=== PATIENT | male | born 2000 | race African-American/Black ===

== ENCOUNTER 2020-04-13 21:12 | Emergency (ER) | payer OTHER, SELFPAY ==
[2020-04-13] MEDS ORDERED: Lidocaine 1% (PF) 30 ML VIAL ONE (22:14)
[2020-04-13] MEDS ORDERED: Sulfameth/Trimethoprim DS 800-160mg TAB ONE (22:48)
== END 2020-04-13 22:55 | disposition home or self-care (01) ==
LOC: NAV ERS 21:12
DX: L02.31 Cutaneous abscess of buttock (principal); B20 Human immunodeficiency virus [HIV] disease; F41.9 Anxiety disorder, unspecified; F32.9 Major depressive disorder, single episode, unspecified; Z79.899 Other long term (current) drug therapy
CPT/HCPCS: 10060; J2001

== ENCOUNTER 2021-04-25 23:35 | Emergency (ER) | payer OTHER ==
[~2021-04-25 23:35] MED LIST: Iopamidol 370 76% 100 ML VIAL ONE
[2021-04-26 00:28] LABS: #Basophils 0.1 thou/uL (0.0-0.2); #Eosinphils 0.5 thou/uL (0.0-0.7); #Lymphocytes 1.8 thou/uL (1.20-3.40); #Monocytes 1.1 thou/uL (0.11-0.59); #Neutrophils 6.8 thou/uL (1.40-6.50); %Basophils 0.8 % (0.0-1.0); %Eosinophils 5.1 % (0.0-10.0); %Lymphocytes 17.8 % (21.0-51.0); %Monocytes 10.5 % (0.0-10.0); %Neutrophils 65.9 % (42.0-75.0); Hemoglobin 14.9 g/dL (14.0-18.0); Mean Corpuscular HGB CONC 30.8 g/dL (32.0-36.0); Mean Corpuscular Volume 84.6 fL (78.0-98.0); Mean Platelet Volume 8.3 fL (7.4-10.4); Platelet Count 325 thou/uL (130-400); RBC Distribution Width 12.6 % (11.5-14.5); Red Blood Cell (RBC) Count 5.72 mill/uL (4.70-6.10); White Blood Cell (WBC) Count 10.3 thou/uL (4.8-10.8)
[2021-04-26 00:45] LABS: ALT (SGPT) 18 U/L (8-55); AST (SGOT) 20 U/L (5-34); Albumin 4.2 g/dL (3.5-5.0); Alkaline Phosphatase 68 U/L (40-110); Anion Gap 11 mmol/L (10-20); BUN (Urea Nitrogen) 14 mg/dL (8.9-20.6); Bilirubin, Total 0.3 mg/dL (0.2-1.2); Calc. Creatinine Clearance 0 mL/min (70-130); Calcium 9.4 mg/dL (7.8-10.44); Carbon Dioxide 26 mmol/L (22-29); Chloride 105 mmol/L (98-107); Globulin 3.2 g/dL (2.4-3.5); Glucose 88 mg/dL (70-105); Lipase 14 U/L (8-78); Potassium 3.6 mmol/L (3.5-5.1); Protein, Total 7.4 g/dL (6.0-8.3); Sodium 138 mmol/L (136-145)
[2021-04-26 01:04] LABS: Bilirubin Negative (Negative); Blood, Urine Trace (Negative); Clarity Clear (Clear); Glucose, Urine (Dipstick) Negative (Negative); Ketone, Urine Trace mg/dL (Negative); Leukocyte Negative (Negative); Nitrite Negative (Negative); Protein, Urine (Dipstick) 100 mg/dL (Neg-Trace); Urobilinogen 0.2 mg/dL (Less than 2)
[2021-04-26 01:11] LABS: Specific Gravity, Urine 1.032 (1.002-1.036)
[2021-04-26 01:12] LABS: Bacteria/HPF Rare-Few HPF (None Seen); RBC/HPF 0-3 HPF (0-3); Squamous Epithelial 0-3 HPF (0-3); WBC/HPF 0-3 HPF (0-3)
[2021-04-26] MEDS ORDERED: Sodium Chloride 0.9% 100 ML ONE (01:21)
[2021-04-26] MEDS ORDERED: cefTRIAXone\\ROCEPHIN 1 GM VIAL ONE (01:21)
[2021-04-26] MEDS ORDERED: Acetaminophen 500 MG TAB ONE (02:23)
[2021-04-26] MEDS ORDERED: Bacitracin 1 PK ONE (02:51)
== END 2021-04-26 03:00 | disposition home or self-care (01) ==
LOC: NAV ERS 23:35
DX: S62.515A Nondisplaced fracture of proximal phalanx of left thumb, initial encounter for closed fracture (principal); S61.052A Open bite of left thumb without damage to nail, initial encounter; S30.1XXA Contusion of abdominal wall, initial encounter; Y04.1XXA Assault by human bite, initial encounter
CPT/HCPCS: 36415; 74177; 80053; 81003; 81015; 83690; 85025; 96365; J0696; J3490; Q9967